=== PATIENT | female | born 1975 | race Native Hawaiian/Other Pacific Islander ===

== ENCOUNTER 2016-09-29 14:11 | Emergency (ER) | payer OTHER ==
[~2016-09-29] VITALS: Ht 152.4 cm; Wt 88.5 kg
[2016-09-29 14:45] LABS: PLATELET COUNT 355 K/uL (152-353)
[2016-09-29 14:52] LABS: POTASSIUM 3.8 mmol/L (3.6-5.2); SODIUM 135 mmol/L (136-145)
== END 2016-09-29 15:57 | disposition home or self-care (01) ==
LOC: ED 14:11
DX: J06.9 Acute upper respiratory infection, unspecified (principal)
CPT/HCPCS: 36415; 80053; 85027; 87081; 87804; 87880; 99283

== ENCOUNTER 2018-11-29 12:58 | Emergency (ER) | payer OTHER ==
[~2018-11-29] VITALS: Ht 152.4 cm; Wt 99.8 kg
[2018-11-29 16:25] VITALS: BP 142/82; TEMP 98.1
== END 2018-11-29 16:25 | disposition home or self-care (01) ==
LOC: ED 12:58
PROC: 2W3DX1Z Immobilization of Left Lower Arm using Splint (ICD-10-PCS; principal; 2018-11-29)
PROC: 2W3QX1Z Immobilization of Right Lower Leg using Splint (ICD-10-PCS; 2018-11-29)
DX: S52.515A Nondisplaced fracture of left radial styloid process, initial encounter for closed fracture (principal); S52.615A Nondisplaced fracture of left ulna styloid process, initial encounter for closed fracture; S93.401A Sprain of unspecified ligament of right ankle, initial encounter; W19.XXXA Unspecified fall, initial encounter; Y92.098 Other place in other non-institutional residence as the place of occurrence of the external cause
CPT/HCPCS: 96372; 99283; J1885

== ENCOUNTER 2018-11-30 18:36 | Emergency (ER) | payer OTHER ==
[~2018-11-30] VITALS: Ht 152.4 cm; Wt 102.5 kg
[2018-11-30 18:44] VITALS: TEMP 97.7
[2018-11-30 21:06] VITALS: BP 116/89
== END 2018-11-30 21:06 | disposition home or self-care (01) ==
LOC: ED 18:36
PROC: 2W3DX1Z Immobilization of Left Lower Arm using Splint (ICD-10-PCS; principal; 2018-11-30)
DX: R20.0 Anesthesia of skin (principal); S62.102A Fracture of unspecified carpal bone, left wrist, initial encounter for closed fracture
CPT/HCPCS: 99282

== ENCOUNTER 2018-12-19 00:50 | Emergency (ER) | payer OTHER ==
[~2018-12-19] VITALS: Ht 152.4 cm; Wt 102.5 kg
[2018-12-19 00:58] VITALS: TEMP 99.3
[2018-12-19 02:34] VITALS: BP 147/92
== END 2018-12-19 02:38 | disposition home or self-care (01) ==
LOC: ED 00:50
DX: M25.532 Pain in left wrist (principal); G89.18 Other acute postprocedural pain
CPT/HCPCS: 96372; 99282; J1170

== ENCOUNTER 2019-01-24 14:49 | Emergency (ER) | payer OTHER ==
[~2019-01-24] VITALS: Ht 152.4 cm; Wt 89.8 kg
[2019-01-24 15:44] VITALS: BP 132/77; TEMP 98.1
== END 2019-01-24 15:51 | disposition home or self-care (01) ==
LOC: ED 14:49
DX: L50.8 Other urticaria (principal)
CPT/HCPCS: 96360; 96372; 99283; J1200; J2930

== ENCOUNTER 2019-03-24 12:53 | Outpatient (CLI) | payer OTHER | END 2019-03-24 23:31 | disposition home or self-care (01) | LOC: RAD 12:53 | DX: R07.81 Pleurodynia (principal) ==

== ENCOUNTER 2019-04-22 13:35 | Observation (INO) | payer OTHER ==
[~2019-04-22] VITALS: Ht 152.4 cm; Wt 95.3 kg
[2019-04-22 14:14] VITALS: BP 122/85; TEMP 98.4; Ht 152.4 cm; Wt 95.3 kg
[2019-04-22 14:52] LABS: PLATELET COUNT 462 K/uL (152-353)
[2019-04-22 15:09] LABS: POTASSIUM 4.1 mmol/L (3.6-5.2)
[2019-04-22 15:13] LABS: PARTIAL THROMBOPLASTIN TIME 26.1 SECONDS (24.5-33.6)
[2019-04-22 16:00] VITALS: BP 122/85; TEMP 98.4
[2019-04-22 20:00] VITALS: BP 127/80; TEMP 98.3
[2019-04-23] VITALS (7 sets, daily range): BP systolic 10–160; BP diastolic 64–83; TEMP 97.9–99
[2019-04-23 10:24] LABS: PLATELET COUNT 376 K/uL (152-353)
[2019-04-24 04:00] VITALS: BP 102/67; TEMP 97.7
[2019-04-24 05:24] LABS: PLATELET COUNT 325 K/uL (152-353)
[2019-04-24 08:00] VITALS: BP 124/78; TEMP 98.6
[2019-04-24 12:00] VITALS: BP 101/44; TEMP 97.3
[2019-04-24 16:00] VITALS: BP 124/78; TEMP 98.1
== END 2019-04-24 18:30 | disposition home or self-care (01) ==
LOC: MED/SURG 13:35
PROVIDERS: ADMIT Family Medicine
DX: K52.89 Other specified noninfective gastroenteritis and colitis (principal); I10 Essential (primary) hypertension; E86.0 Dehydration; E66.8 Other obesity; K57.32 Diverticulitis of large intestine without perforation or abscess without bleeding
CPT/HCPCS: 36415; 80053; 81000; 82272; 82550; 83630; 83735; 84100; 84484; 85027; 85610; 85730; 87015; 87040; 87045; 87324; 87328; 87329; 87449; 87899; 93005; 96360; 96365; 96366; 96367; 96375; 99220; G0378; G0379; J2175; J2543; J2550; Q9963

== ENCOUNTER 2019-04-27 15:42 | Outpatient (CLI) | payer OTHER ==
[~2019-04-27] VITALS: Ht 152.4 cm; Wt 95.3 kg
[2019-04-27 15:45] VITALS: BP 138/91; TEMP 98.7
[2019-04-27 16:32] VITALS: BP 122/85
== END 2019-04-27 16:35 | disposition home or self-care (01) ==
LOC: INF 15:42
DX: E86.0 Dehydration (principal)
CPT/HCPCS: 96360

== ENCOUNTER 2019-05-14 07:05 | Emergency (ER) | payer OTHER ==
[~2019-05-14] VITALS: Ht 152.4 cm; Wt 86.2 kg
[2019-05-14 07:17] VITALS: TEMP 97.7
[2019-05-14 09:15] VITALS: BP 122/65
== END 2019-05-14 09:15 | disposition home or self-care (01) ==
LOC: ED 07:05
PROC: 2W3MX1Z Immobilization of Left Lower Extremity using Splint (ICD-10-PCS; principal; 2019-05-14)
DX: S83.412A Sprain of medial collateral ligament of left knee, initial encounter (principal); W17.2XXA Fall into hole, initial encounter; Y92.89 Other specified places as the place of occurrence of the external cause
CPT/HCPCS: 99283

== ENCOUNTER 2019-05-16 19:22 | Emergency (ER) | payer OTHER ==
[~2019-05-16] VITALS: Ht 152.4 cm; Wt 86.2 kg
[2019-05-16 21:53] LABS: PLATELET COUNT 355 K/uL (152-353)
[2019-05-16 22:29] LABS: POTASSIUM 3.4 mmol/L (3.6-5.2)
[2019-05-17 00:10] VITALS: BP 129/78; TEMP 98.1
== END 2019-05-17 00:10 | disposition home or self-care (01) ==
LOC: ED 19:22
PROVIDERS: Hospitalist
DX: K57.90 Diverticulosis of intestine, part unspecified, without perforation or abscess without bleeding (principal); R11.2 Nausea with vomiting, unspecified
CPT/HCPCS: 36415; 80053; 81000; 81025; 82150; 83690; 85027; 96360; 96375; 99284; J1885; J2405

== ENCOUNTER 2019-05-20 14:36 | Outpatient (CLI) | payer OTHER ==
[2019-05-20 15:34] LABS: PLATELET COUNT 408 K/uL (152-353)
[2019-05-20 15:37] LABS: POTASSIUM 3.9 mmol/L (3.6-5.2)
== END 2019-05-20 19:38 | disposition home or self-care (01) ==
LOC: LABW 14:36
PROVIDERS: Internal Medicine Gastroenterology
DX: K57.92 Diverticulitis of intestine, part unspecified, without perforation or abscess without bleeding (principal); R10.9 Unspecified abdominal pain
CPT/HCPCS: 36415; 80053; 83516; 85027; 86140

== ENCOUNTER 2019-07-12 05:17 | Emergency (ER) | payer OTHER ==
[~2019-07-12] VITALS: Ht 152.4 cm; Wt 86.2 kg
[2019-07-12 05:20] VITALS: BP 126/84; TEMP 97.5
[2019-07-12 06:03] LABS: PLATELET COUNT 382 K/uL (152-353)
[2019-07-12 06:12] LABS: POTASSIUM 4.2 mmol/L (3.6-5.2)
== END 2019-07-12 10:48 | disposition home or self-care (01) ==
LOC: ED 05:17
PROVIDERS: Hospitalist
DX: N39.0 Urinary tract infection, site not specified (principal); R10.31 Right lower quadrant pain
CPT/HCPCS: 80053; 81000; 81025; 82272; 83690; 85027; 85610; 87077; 87086; 87088; 87186; 96360; 96365; 96375; 99284; J0696; J1885; J2270; J2405; Q9963

== ENCOUNTER 2019-07-15 16:24 | Outpatient (CLI) | payer OTHER | END 2019-07-15 19:40 | disposition home or self-care (01) | LOC: RAD 16:24 | DX: K59.00 Constipation, unspecified (principal) ==

== ENCOUNTER 2019-07-20 11:57 | Outpatient (CLI) | payer OTHER ==
[~2019-07-20] VITALS: Ht 152.4 cm; Wt 88.9 kg
[2019-07-20 12:04] VITALS: BP 146/75; TEMP 99.1
[2019-07-20 13:22] VITALS: BP 141/75; TEMP 99
== END 2019-07-20 13:22 | disposition home or self-care (01) ==
LOC: INF 11:57
DX: E86.0 Dehydration (principal)
CPT/HCPCS: 96360